=== PATIENT | female | born 1950 ===

== ENCOUNTER → 2021-06-08 10:32 | Outpatient (BNVA) | payer OTHER, SELFPAY | PROVIDERS: PCP Internal Medicine; Visit Provider Nurse Practitioner Family | DX: Z13.89 Encounter for screening for other disorder (principal) ==

== ENCOUNTER 2021-08-25 06:37 | Outpatient (REF) | payer MEDICARE, SELFPAY ==
--- NOTE | ~2021-08-25 | FL_ITS ---
EXAMINATION: XR FLUOROSCOPY WITH IMAGES CLINICAL INFORMATION: Sacrococcygeal disorder. COMPARISON: None. TECHNIQUE: Fluoroscopy performed by Michelle Velazquez. Fluoroscopy time: 0.1 minutes DAP: 0.813 Gy-cm2 Images: 1 FINDINGS: Needle is seen overlying the lower left sacroiliac joint with some surrounding contrast being evident. FL/FL guidance in treatment room IMPRESSION: Fluoroscopy for pain management procedure.
== END 2021-08-25 06:38 | disposition home or self-care (01) ==
LOC: HO.RADIR 06:37
PROVIDERS: Visit Provider Anesthesiology
DX: M53.3 Sacrococcygeal disorders, not elsewhere classified (principal); M43.06 Spondylolysis, lumbar region; M25.552 Pain in left hip; M25.562 Pain in left knee; M17.0 Bilateral primary osteoarthritis of knee; M16.0 Bilateral primary osteoarthritis of hip
CPT/HCPCS: 27096

== ENCOUNTER → 2021-08-27 09:30 | Outpatient (BNVA) | payer MEDICARE, SELFPAY | PROVIDERS: PCP Internal Medicine; Visit Provider Anesthesiology | DX: M43.06 Spondylolysis, lumbar region (principal); M53.3 Sacrococcygeal disorders, not elsewhere classified; M25.552 Pain in left hip; M25.562 Pain in left knee; M17.0 Bilateral primary osteoarthritis of knee; M16.0 Bilateral primary osteoarthritis of hip | CPT/HCPCS: Q3014 ==

== ENCOUNTER 2021-09-29 06:03 | Outpatient (REF) | payer MEDICARE, SELFPAY | END 2021-09-29 06:04 | disposition home or self-care (01) | LOC: HO.RADIR 06:03 | PROVIDERS: Visit Provider Anesthesiology | DX: Z13.89 Encounter for screening for other disorder (principal) ==

== ENCOUNTER 2021-10-06 06:08 | Outpatient (REF) | payer MEDICARE, SELFPAY ==
--- NOTE | ~2021-10-06 | FL_ITS ---
EXAMINATION: XR FLUOROSCOPY WITH IMAGES CLINICAL INFORMATION: M25.552 - Pain in left hip COMPARISON: None. TECHNIQUE: Fluoroscopy performed by Dr. Sang Wilson. Fluoroscopy time: 0.3 minutes. Cumulative Dose: 25.9 mGy. DAP: 7.07 Gy-cm2. Images: 2. FINDINGS: There is a spinal needle with tip overlying the superolateral hip joint. Intracapsular contrast is demonstrated. There are right hip osteoarthritic changes with joint narrowing and subchondral sclerosis and probable osteophyte. FL/FL guidance in treatment room IMPRESSION: Fluoroscopy for pain management procedure.
== END 2021-10-06 06:09 | disposition home or self-care (01) ==
LOC: HO.RADIR 06:08
PROVIDERS: Visit Provider Anesthesiology
DX: M25.552 Pain in left hip (principal)
CPT/HCPCS: 20610; J3300

== ENCOUNTER → 2021-11-12 10:34 | Outpatient (BNVA) | payer MEDICARE, SELFPAY | PROVIDERS: PCP Internal Medicine; Visit Provider Nurse Practitioner Family | DX: M16.0 Bilateral primary osteoarthritis of hip (principal); M17.0 Bilateral primary osteoarthritis of knee; M25.562 Pain in left knee; M25.552 Pain in left hip; M53.3 Sacrococcygeal disorders, not elsewhere classified; M47.816 Spondylosis without myelopathy or radiculopathy, lumbar region | CPT/HCPCS: Q3014 ==